=== PATIENT | male | born 1985 | race Caucasian/White ===

== ENCOUNTER 2024-01-26 03:51 | Inpatient (IN) | payer OTHER ==
[~2024-01-26] VITALS: Ht 177.8 cm; Wt 89.0 kg
[2024-01-26] MEDS: naloxone 2mg/2ml inj ONE (04:14)
[2024-01-26] MEDS: CefTRIAXone/D5W-Rocephin 1gm 50 ML IV ONE (05:05)
[2024-01-26] MEDS: metroNIDAZOLE-Flagyl 500mg/NS 100 ML IV STA (05:46)
[2024-01-26 06:04] LABS: BASOPHILS # (AUTO) 0.1 X10'3 (0-0.2); BASOPHILS % (AUTO) 0.5 % (0-1); EOSINOPHILS % (AUTO) 0.3 % (0-6); HEMATOCRIT 48.9 % (42.0-52.0); HEMOGLOBIN 16.5 g/dl (14.0-17.9); LYMPHOCYTES # (AUTO) 0.9 X10'3 (1.1-4.8); LYMPHOCYTES % (AUTO) 8.1 % (21-51); MEAN CORPUSCULAR HEMOGLOBIN 29.5 PG (27.0-31.0); MEAN CORPUSCULAR HGB CONC 33.7 g/dL (33.0-36.5); MEAN CORPUSCULAR VOLUME 87.4 FL (78-98); MEAN PLATELET VOLUME 8.3 FL (7.4-10.4); MONOCYTES # (AUTO) 0.6 X10'3 (0-0.9); MONOCYTES % (AUTO) 5.4 % (2-12); NEUTROPHILS # (AUTO) 9.5 X10'3 (1.8-7.7); NEUTROPHILS % (AUTO) 85.7 % (42-75); PLATELET COUNT 227 X10'3 (140-440); RED BLOOD COUNT 5.59 X10'6 (4.70-6.10); RED CELL DISTRIBUTION WIDTH 13.4 % (11.5-14.5); WHITE BLOOD COUNT 11.1 X10'3 (4.5-11.0)
[2024-01-26 06:21] LABS: ALANINE AMINOTRANSFERASE 74 U/L (12-78); ALBUMIN 3.6 G/DL (3.4-5.0); ALBUMIN/GLOBULIN RATIO 1.1 (1.1-1.5); ALKALINE PHOSPHATASE 85 IU/L (46-116); ANION GAP 9 (8-16); ASPARTATE AMINO TRANSFERASE 64 U/L (10-37); BILIRUBIN,TOTAL 0.4 MG/DL (0.1-1.0); BLOOD UREA NITROGEN 16 MG/DL (7-18); CALCIUM 8.2 MG/DL (8.5-10.1); CHLORIDE 107 MMOL/L (99-107); CREATININE 0.94 MG/DL (0.60-1.10); ETHANOL < 10 MG/DL (<10); GLUCOSE 153 MG/DL (70-104); POTASSIUM 3.4 MMOL/L (3.5-5.1); SODIUM 141 MMOL/L (135-145); TOTAL CARBON DIOXIDE 25.4 MMOL/L (24-32); TOTAL PROTEIN 6.8 G/DL (6.4-8.2); eCRCL 112 ML/MIN; eGFR > 90 ML/MIN
[2024-01-26] MEDS: diphenhydrAMINE 50 mg/ml inj IV ONE (07:48)
[2024-01-26] MEDS: azithromycin/NS 500mg/250ml 250 ML IV ONE (07:48)
[2024-01-26] MEDS: metoclopramide 5 mg/ml inj IV ONE (07:48)
[2024-01-26] MEDS ORDERED: magnesium 2GM in 50ml NS 50 ML IV PRN (08:40)
[2024-01-26] MEDS ORDERED: magnesium Cl slow-release 64mg tablet PO PRN (08:40)
[2024-01-26] MEDS ORDERED: acetaminophen 325mg tablet PO PRN ×2 (08:40)
[2024-01-26] MEDS ORDERED: ondansetron/PF 4mg/2ml inj IV PRN (08:40)
[2024-01-26] MEDS ORDERED: potassium Cl 20 mEq SR tablet PO PRN ×2 (08:40)
[2024-01-26] MEDS ORDERED: magnesium 4gm in 100ml NS 100 ML IV PRN (08:40)
[2024-01-26] MEDS ORDERED: potassium Cl 40MEQ/1/2NS 520ml 520 ML IV PRN (08:40)
[2024-01-26 08:53] LABS: BILIRUBIN,URINE NEGATIVE (Neg); CLARITY,URINE SLIGHTLY CLOUDY (Clear); COLOR,URINE YELLOW (Yellow); GLUCOSE, URINE 100 mg/dl (Neg); KETONES,URINE NEGATIVE (Neg); LEUKOCYTE ESTERASE ,URINE NEGATIVE (Neg); NITRITES, URINE NEGATIVE (Neg); OCCULT BLOOD,URINE NEGATIVE (Neg); PH,URINE 5.5 (4.8-8.0); PROTEIN,URINE TRACE mg/dl (Neg); UROBILINOGEN,URINE 0.2 E.U/dL (0.2-1.0)
[2024-01-26 08:55] LABS: UA COLLECTION TYPE NON-SPECIFIED
[2024-01-26 09:12] LABS: URINE AMPHETAMINE SCREEN POSITIVE (Neg); URINE BARBITUATE SCREEN NEGATIVE (Neg); URINE BENZODIAZEPINES SCREEN NEGATIVE (Neg); URINE CANNABINOID SCREEN POSITIVE (Neg); URINE COCAINE SCREEN NEGATIVE (Neg); URINE METHADONE SCREEN NEGATIVE (Neg); URINE OPIATE SCREEN POSITIVE (Neg); URINE PHENCYCLIDINE SCREEN NEGATIVE (Neg)
[2024-01-26 09:21] LABS: BACTERIA,URINE NONE SEEN /HPF (Neg); MUCUS STRANDS FEW /LPF (Neg); RBC,URINE 0-2 /HPF (0-2); SQUAMOUS EPITHELIAL CELL,UR FEW /LPF (FEW); WBC,URINE 0-4 /HPF (0-4)
[2024-01-26 09:22] LABS: HYALINE CASTS 0-3 /LPF (NEGATIVE)
[2024-01-26] MEDS: normal saline 1000ml 1,000 ML IV SCH (10:17)
[2024-01-26 11:50] VITALS: BP 138/80; PULSE 96; RESP 20; TEMP 98.3; O2SAT 94
[2024-01-26 12:30] VITALS: RESP 20; O2SAT 94
[2024-01-26] MEDS ORDERED: heparin, porcine 5000 units/ml vial SQ SCH (20:00)
[2024-01-27] MEDS ORDERED: CefTRIAXone 2gm/D5W 50ml BAG 50 ML IV SCH (08:00)
[2024-01-27] MEDS ORDERED: azithromycin/NS 500mg/250ml 250 ML IV SCH (08:00)
== END 2024-01-26 14:55 | disposition left against medical advice (07) | DRG 917 ==
LOC: ER 03:52 → ED HOLD 08:44 → PCU 3S 11:38
PROVIDERS: ADMIT Internal Medicine; ATTEND Internal Medicine
DX: T50.991A Poisoning by other drugs, medicaments and biological substances, accidental (unintentional), initial encounter (principal); J69.0 Pneumonitis due to inhalation of food and vomit; Z53.29 Procedure and treatment not carried out because of patient's decision for other reasons; F12.10 Cannabis abuse, uncomplicated; Y92.89 Other specified places as the place of occurrence of the external cause
CPT/HCPCS: 36415; 70450; 71045; 80053; 80305; 80320; 81001; 82140; 82948; 83605; 85025; 87040; 87070; 93005; 99285; G0378; J0456; J0696; J1200; J2310; J2765; J3490; J7030